=== PATIENT | female | born 1950 | race Caucasian/White ===

== ENCOUNTER 2020-06-23 09:38 | Emergency (ER) | payer MEDICARE, MEDICAID ==
[~2020-06-23] VITALS: Ht 149.9 cm; Wt 77.0 kg
[~2020-06-23 09:38] MED LIST: ALEN70SO3 PO; ALLO300T2 PO; BRIM5DRO OP; CHLO50TA PO; CHOL200059 PO; FERR-63 PO; IBAN150T21 PO; METF-414 PO; RANI150T7 PO; TRAM50TA PO; VALS1TAB34 PO; VALS1TAB76 PO; [UNRECOGNIZED DRUG - CODE] PO; [UNRECOGNIZED DRUG - CODE] RC
[2020-06-23] MEDS: ONDANSETRON HCL 4MG/2ML INJ IV STA (10:44)
[2020-06-23] MEDS: ACETAMINOPHEN 325MG TABLET PO ONE (10:45)
[2020-06-23] MEDS: SODIUM CHLORIDE 0.9% 1,000 ML IV ONE (10:45)
[2020-06-23 11:59] LABS: BASOPHILS % 0.4 % (0.0-2.0); EOSINOPHILS % 0.7 % (0.0-5.0); HEMATOCRIT. 37.6 % (36.0-48.0); HEMOGLOBIN. 12.5 g/dL (12.0-16.0); LYMPHOCYTES % 13.1 % (20.0-50.0); MEAN CORPUSCULAR HEMOGLOBIN 30.3 pg (28.0-32.0); MEAN CORPUSCULAR VOLUME 90.9 fL (81.0-99.0); MEAN PLATELET VOLUME 8.7 fl (7.4-10.4); MONOCYTES % 6.3 % (2.0-8.0); NEUTROPHILS % 79.5 % (40.0-76.0); PLATELET 249 x1000/uL (130-400); RED BLOOD CELL COUNT 4.13 mill/uL (4.2-5.4); RED CELL DISTRIBUTION WIDTH 14.3 % (11.6-14.6)
[2020-06-23 12:11] LABS: CHLORIDE 108 mEq/L (98-107)
[2020-06-23] MEDS: MORPHINE SULFATE 4 MG/ML CPJ (NOT FOR IM USE) IV STA (12:20)
[2020-06-23] MEDS: TETRACAINE 0.5% OPHTH DROPS 4ML RIGHTEYE ONE (12:21)
[2020-06-23] MEDS: FLUORESCEIN SODIUM 1MG/STRIP RIGHTEYE ONE (12:21)
[2020-06-23] MEDS ORDERED: IOHEXOL-300 100 ML BOTTLE ONE (15:16)
[2020-06-23 18:52] VITALS: BP 125/62
== END 2020-06-23 19:32 | disposition home or self-care (01) ==
LOC: ER 10:01 → EDBEDREQ 14:28 → ER 19:32 → CANBEDREQ 20:12
DX: S52.509A Unspecified fracture of the lower end of unspecified radius, initial encounter for closed fracture (principal); S52.90XA Unspecified fracture of unspecified forearm, initial encounter for closed fracture; S05.11XA Contusion of eyeball and orbital tissues, right eye, initial encounter; R07.89 Other chest pain; V49.88XA Car occupant (driver) (passenger) injured in other specified transport accidents, initial encounter; Y93.89 Activity, other specified; Y92.89 Other specified places as the place of occurrence of the external cause; Y99.8 Other external cause status
CPT/HCPCS: 36415; 70450; 70480; 71045; 71260; 73110; 74177; 80053; 83690; 84484; 85025; 93005; 96361; 96374; 96375; 99285; J2270; J2405; J7030; Q9967